=== PATIENT | male | born 1985 | race Caucasian/White ===

== ENCOUNTER 2025-04-09 08:13 | Observation (INO) ==
--- NOTE | 2025-04-09 08:36 | Emergency Department Note ---
Impression & Plan Lumbar disc herniation, Sciatica, Lower back pain, Failure of outpatient treatment ED Provider Note NAME: KEN FABIAN AGE: 39 SEX: M : 1985 ARRIVES VIA: Walk-In INFORMANT: [Patient][signif other] ED PROVIDER(S): [Luis Alfredo Park MD] CHIEF COMPLAINT: Back pain HISTORY OF PRESENT ILLNESS: The patient is a 39-year-old male who states he has a history of some back issues. He has seen [facility] pain management in the past. His last steroid injection in the back was in September of this year. He has never had lumbar surgery. The patient states that in the last week, he has had increasing lower back pain and pain radiating down his left leg. His left leg feels heavy and weak. This is his third visit to this ER in just a few days. The patient is currently using ibuprofen and prednisone, he did take doses this morning. He is not using any narcotic. The patient states that this discomfort today is worse than the original discomfort when he first injured his back. There has been no fever. He has not had cough cold or congestion. He is able to urinate without difficulty. No issues with bowel movements. He denies any recent trauma that would have aggravated or injured the back. PMHx/PSHx/Social Hx: See Below PHYSICAL EXAM: GENERAL: Patient is in no acute distress. HEENT: No acute trauma, normocephalic atraumatic, mucous membranes moist, no nasal congestion. ABDOMEN: Soft, nontender, no peritonitis. EXTREMITIES: No cyanosis, full range of motion of all the joints without pain or difficulty. NEUROLOGIC: Oriented x 3. The patient has decreased strength when testing dorsiflexion of the left toe as compared to the right. There is a slightly decreased left Achilles reflex compared to the right. Patient has 2/4 patellar reflexes bilaterally. SKIN: No jaundice, no diaphoresis. DIFFERENTIAL DIAGNOSIS: Lumbar disc disease, herniated disc, sciatica, nerve impingement, foraminal narrowing, spinal stenosis, among others. EMERGENCY DEPARTMENT PROCEDURES: MEDICAL DECISION MAKING: There is no leukocytosis, a very subtle anemia was seen. There was a normal platelet count. No bandemia. Sed rate was normal at 5. No renal failure or significant electrolyte abnormality. Orbit x-rays did not show any metallic debris. On exam, the patient had some diminished reflexes and strength in the left lower extremity when compared to the right. He was not febrile or toxic. Patient received IV Zofran, IV morphine, IV Toradol, IV Decadron and IV Tylenol. He was ordered for IV Dilaudid as needed for additional pain control. Lumbar spine MRI shows a left L5-S1 disc herniation with nerve compression. I discussed the case with the spinal surgical team. The patient is best with admission, pain and symptom control, he can be seen by pain management and spinal surgery tomorrow. No emergent surgical intervention required this afternoon. I spoke with the patient and case management, the on-call hospitalist was consulted. In short, the patient does have a left disc herniation causing his complaints. He has failed outpatient management and is now in need of hospitalization. Prior/Outside records/notes reviewed: Previous ED visit note describing his presentation, findings and outpatient plan. Imaging/x-ray results per my interpretation: Orbit x-ray does not show any metallic debris. Chronic Medical/Social conditions affecting care: History of her previous back injury requiring steroid injections. Care/Management discussed with: Case management, the on-call hospitalist. Spinal surgery-Dr Vee. Level of care consideration(s): After review of the information above and other included data: --I believe the patient requires escalation of care to admission DISPOSITION: Admission Past Med/Surg History Problem List Failure of outpatient treatment (Acute) Lower back pain (Acute) Lumbar disc herniation (Acute) Lumbar radiculopathy (Acute) Back pain (Acute) Unwanted fertility Medical History Sciatica Social History Smoking Status: Light tobacco smoker Tobacco Type: Smokeless Tobacco (Dip or Chew) Do You Dip or Chew Tobacco: Yes (one can every day and a half); Hx Alcohol Use: Yes Hx Substance Use: No Preferred Language: Georgian Machine Stapler Required: No Beliefs That Will Affect Care: None Current Living Situation: Family Current Living Situation Comment: 2 sons and 5 dogs Other Information That Helps Us Care for You: No Feels Safe at Home: Yes Safety Concerns: Feels Safe At This Time Assistive Devices: None Allergies Allergies Allergy/AdvReac Type Severity Reaction Status Date / Time No Known Allergies Allergy Verified 10/02/21 10:48 Home Meds Home Medications Medication Instructions Recorded Confirmed cyclobenzaprine 5 mg tablet 5 mg PO TID PRN Pain 04/09/25 04/09/25 ibuprofen 600 mg tablet (IBU) 600 mg PO Q6H PRN Pain 04/09/25 04/09/25 Results & Data (ED) Vital Signs Vital Signs - 24 hr 04/09/25 08:16 04/09/25 08:19 04/09/25 09:55 Temperature 36.3 C L Temperature Source Temporal Artery Scan Pulse Rate 73 Pulse Rate [Right Finger] 71 63 Pulse Rhythm Regular Respiratory Rate 20 22 18 Respiratory Effort / Characteristics Non-Labored Spontaneous Non-Labored Spontaneous Non-Labored Spontaneous Respiratory Depth Normal Normal Normal Respiratory Pattern Regular Regular Blood Pressure 145/104 H Blood Pressure [Right Arm] 112/82 115/84 Blood Pressure Mean 117 Blood Pressure Mean [Right Arm] 92 94 Blood Pressure Position Sitting Blood Pressure Position [Right Arm] Pulse Oximetry 99 96 98 Oxygen Delivery Method Room Air Room Air Room Air Sepsis Recent Fever Within 48 Hours No Sepsis New/Unexplained Change in Mental Status No Sepsis Action Taken by Nursing No Action Required 04/09/25 11:31 04/09/25 13:00 Temperature Temperature Source Pulse Rate Pulse Rate [Right Finger] 75 73 Pulse Rhythm Respiratory Rate 18 18 Respiratory Effort / Characteristics Non-Labored Spontaneous Non-Labored Spontaneous Respiratory Depth Normal Normal Respiratory Pattern Regular Regular Blood Pressure Blood Pressure [Right Arm] 130/88 130/85 Blood Pressure Mean Blood Pressure Mean [Right Arm] 102 100 Blood Pressure Position Blood Pressure Position [Right Arm] Lying Lying Pulse Oximetry 95 95 Oxygen Delivery Method Room Air Room Air Sepsis Recent Fever Within 48 Hours Sepsis New/Unexplained Change in Mental Status Sepsis Action Taken by Longterm Medications Current Medication List: was personally reviewed by me Laboratory Data Attestation: I reviewed the patient's lab results. 04/09/25 08:27 04/09/25 08:27 Lab Results 04/09/25 Range/Units 08:27 WBC 10.12 (4.8-10.8) K/ul RBC 4.64 L (4.70-6.10) M/uL Hgb 13.7 L (14.0-18.0) g/dl Hct 41.1 L (42.0-52.0) % MCV 88.6 (80.0-100.0) fL MCH 29.5 (25.0-34.0) pg MCHC 33.3 (32.0-36.0) g/dL RDW Std Deviation 38.0 (36.4-46.3) fL RDW Coeff of Oren 11.9 (11.5-14.5) % Plt Count 186 (130-400) K/uL MPV 10.0 (9.4-12.4) fL Immature Gran % (Auto) 0.3 % Neut % (Auto) 78.8 % Lymph % (Auto) 12.4 % [place] % (Auto) 7.6 % Eos % (Auto) 0.7 % Baso % (Auto) 0.2 % Neut # (Auto) 7.98 H (1.40-6.50) K/uL Lymph # (Auto) 1.25 (1.20-3.40) K/uL [place] # (Auto) 0.77 H (0.11-0.59) K/uL Eos # (Auto) 0.07 (0.00-0.50) K/uL Baso # (Auto) 0.02 (0.00-0.20) K/uL Immature Gran # (Auto) 0.03 (0.01-0.20) K/uL ESR 5 (0-15) mm/hr Sodium 142 (136-145) mmol/L Potassium 3.8 (3.5-5.1) mmol/L Chloride 108 H (98-107) mmol/L Carbon Dioxide 27 (21-32) mmol/L Anion Gap 7 (3-11) BUN 20 (6-23) mg/dl Creatinine 1.14 (0.6-1.4) mg/dl Est Cr Clr Drug Dosing 102.1 ml/min eGFR 84.42 BUN/Creatinine Ratio 17.5 (10-20) Glucose 119 H (70-99(Fasting)) mg/dl Calcium 9.3 (8.6-10.3) mg/dl Administered Medications Hydromorphone HCl (Hydromorphone Inj 0.5 Mg/0.5 Ml Syr) 0.5 mg IV Q15M PRN PRN Reason: Pain Stop: 04/23/25 09:27 Last Admin: 04/09/25 09:57 Dose: 0.5 mg Documented By: ROSELINE Discontinued Medications Dexamethasone Sodium Phosphate (DexamethasonePf 10 Mg/Ml Vial) 6 mg IV NOW ONE Stop: 04/09/25 08:22 Last Admin: 04/09/25 08:45 Dose: 6 mg Documented By: na Acetaminophen (Ofirmev) 1,000 mg in 100 mls @ 400 mls/hr IV NOW STA Stop: 04/09/25 08:45 Last Infusion: 04/09/25 09:24 Dose: Infused Documented By: na Admin: 04/09/25 08:46 Dose: 400 mls/hr Documented By: na Ketorolac Tromethamine (Ketorolac Tromethamine 15 Mg/Ml Vial) 10 mg IV NOW ONE Stop: 04/09/25 08:22 Last Admin: 04/09/25 08:46 Dose: 10 mg Documented By: na Morphine Sulfate (Morphine Sulfate 10 Mg/Ml Carp/Vial) 6 mg IV NOW STA Stop: 04/09/25 08:22 Last Admin: 04/09/25 08:45 Dose: 6 mg Documented By: na Ondansetron HCl (Ondansetron Inj 2 Mg/Ml 2 Ml Vial) 4 mg IV NOW STA Stop: 04/09/25 08:22 Last Admin: 04/09/25 08:46 Dose: 4 mg Documented By: na Imaging Data Radiologist's Impression: Lumbar Spine MRI 04/09/25 08:31 MR lumbar spine wo con CLINICAL HISTORY: left leg pain and weakness. COMPARISON: None TECHNIQUE: Multiplanar, multi sequence MRI of the lumbar spine was performed without intravenous contrast. FINDINGS: Conus medullaris terminates normally at L1. No lumbar spine fracture or subluxation seen. L1-2: No significant disc bulge or central canal or neural foraminal narrowing. L2-3: There is a minimal disc bulge. No significant central canal or neuroforaminal narrowing. L3-4: No significant disc bulge. No central canal or neuroforaminal narrowing. L4-5: There is a mild broad-based disc bulge with minimal ligamentum flavum and facet hypertrophy. No significant central canal narrowing. There is mild right neural foraminal narrowing. No significant neural foraminal narrowing on the left. L5-S1: There is a mild broad-based disc bulge with a superimposed left paracentral disc extrusion or free disc fragment measuring 8 mm extending below the disc, best seen on axial series 5 image 25 and sagittal series 2 image 9. This causes mass effect on the exiting left nerve root at the left lateral recess. There is mild bilateral neuroforaminal narrowing. IMPRESSION: 1. No lumbar spine fracture seen. 2. Left paracentral disc extrusion or free disc fragment at L5-S1 causes mass effect on the exiting left nerve root. ACT 112: Negative or not required by law. The above report was generated using voice recognition software. It may contain grammatical, syntax or spelling errors. Electronically signed by: Aly Sandy M.D. 04/09/2025 10:29 AM Orbit X-Ray 04/09/25 09:11 XR orbits for MRI CLINICAL HISTORY: Screening for foreign body for MRI COMPARISON STUDY: None FINDINGS: No metallic foreign body seen at the orbits. IMPRESSION: No metallic foreign body seen at the orbits. ACT 112: Negative or not required by law. Electronically signed by: Aly Sandy M.D. 04/09/2025 9:35 AM Discharge Plan Visit Data Chief Complaint: Back Injury/Pain Stated Complaint: BACK PAIN ED Provider: Luis Alfredo Park Discharge Problem: Lumbar disc herniation, Sciatica, Lower back pain, Failure of outpatient treatment Patient Disposition: Admitted As Inpatient Condition: Fair Discharge Instructions Interventions: ED Discharge Assessment Last Done: 04/09/25 15:28 Discharge Problem: Sciatica Qualifiers: Laterality: left Qualified Code(s): M54.32 - Sciatica, left side Lower back pain Qualifiers: Chronicity: acute Back pain laterality: left Sciatica presence: with sciatica S ciatica laterality: sciatica of left side Qualified Code(s): M54.42 - Lumbago with sciatica, left side
[2025-04-09] MEDS: dexAMETHasone**PF** 10 MG/ML VIAL IV ONE (08:45)
[2025-04-09] MEDS: MoRPHine SULFATE 10 MG/ML CARP/VIAL IV STA (08:45)
[2025-04-09] MEDS: KETOROLAC TROMETHAMINE 15 MG/ML VIAL IV ONE (08:46)
[2025-04-09] MEDS: ONDANSETRON INJ 2 MG/ML 2 ML VIAL IV STA (08:46)
[2025-04-09] MEDS: ACETAMINOPHEN 1,000 MG/100 ML VIAL IV STA (08:46)
[2025-04-09 08:50] LABS: Hematocrit (blood only) 41.1 % (42.0-52.0); Hemoglobin 13.7 g/dl (14.0-18.0); Immature Granulocytes # (auto) 0.03 K/uL (0.01-0.20); Immature Granulocytes % (auto) 0.3 %; Mean Corpuscular Hemoglobin 29.5 pg (25.0-34.0); Mean Corpuscular Volume 88.6 fL (80.0-100.0); Platelet Count 186 K/uL (130-400); RDW Standard Deviation 38.0 fL (36.4-46.3); Red Blood Count 4.64 M/uL (4.70-6.10); White Blood Count 10.12 K/ul (4.8-10.8)
[2025-04-09 09:11] LABS: Anion Gap 7.0 (3-11); Blood Urea Nitrogen 20.0 mg/dl (6-23); Calcium 9.3 mg/dl (8.6-10.3); Carbon Dioxide 27.0 mmol/L (21-32); Chloride 108.0 mmol/L (98-107); Creatinine Clr Calc Pharmacy 102.1 ml/min; Glucose 119.0 mg/dl (70-99(Fasting)); Potassium 3.8 mmol/L (3.5-5.1); Sodium 142.0 mmol/L (136-145)
--- NOTE | 2025-04-09 09:36 | XRay Report ---
XR orbits for MRI CLINICAL HISTORY: Screening for foreign body for MRI COMPARISON STUDY: None FINDINGS: No metallic foreign body seen at the orbits. IMPRESSION: No metallic foreign body seen at the orbits. ACT 112: Negative or not required by law. Electronically signed by: Aly Sandy M.D. 04/09/2025 9:35 AM
[2025-04-09] MEDS: HYDROmorphone INJ 0.5 MG/0.5 ML SYR IV PRN (09:57)
--- NOTE | 2025-04-09 10:31 | Magnetic Resonance Report ---
MR lumbar spine wo con CLINICAL HISTORY: left leg pain and weakness. COMPARISON: None TECHNIQUE: Multiplanar, multi sequence MRI of the lumbar spine was performed without intravenous cont rast. FINDINGS: Conus medullaris terminates normally at L1. No lumbar spine fracture or subluxation seen. L1-2: No significant disc bulge or central canal or neural foraminal narrowing. L2-3: There is a minimal disc bulge. No significant central canal or neuroforaminal narrowing. L3-4: No significant disc bulge. No central canal or neuroforaminal narrowing. L4-5: There is a mild broad-based disc bulge with minimal ligamentum flavum and facet hypertrophy. No significant central canal narrowing. There is mild right neural foraminal narrowing. No significant neural foraminal narrowing on the left. L5-S1: There is a mild broad-based disc bulge with a superimposed left paracentral disc extrusion or free disc fragment measuring 8 mm extending below the disc, best seen on axial series 5 image 25 and sagittal series 2 image 9. This causes mass effect on the exiting left nerve root at the left lateral recess. There is mild bilateral neuroforaminal narrowing. IMPRESSION: 1. No lumbar spine fracture seen. 2. Left paracentral disc extrusion or free disc fragment at L5-S1 causes mass effect on the exiting l eft nerve root. ACT 112: Negative or not required by law. The above report was generated using voice recognition software. It may contain grammatical, syntax o r spelling errors. Electronically signed by: Aly Sandy M.D. 04/09/2025 10:29 AM
[2025-04-09] MEDS ORDERED: MELATONIN 3 MG TAB PO PRN (16:00)
[2025-04-09] MEDS ORDERED: ACETAMINOPHEN 325 MG TAB PO PRN (16:00)
[2025-04-09] MEDS ORDERED: ONDANSETRON INJ 2 MG/ML 2 ML VIAL IV PRN (16:00)
[2025-04-09] MEDS ORDERED: ALUMINUM/MAGNESIUM SUSP 30 ML UDC PO PRN (16:00)
[2025-04-09] MEDS ORDERED: MoRPHine SULFATE 2 MG/ML CARP IV PRN (16:00)
--- NOTE | 2025-04-09 16:47 | History & Physical Report ---
Date of Service April 09, 2025 Assessment & Plan (1) Failure of outpatient treatment: (2) Lower back pain: (3) Lumbar disc herniation: (4) Lumbar radiculopathy: (5) Back pain: (6) Unwanted fertility: Plan 39 yrs old male presents to the ED with complaints of back pain. He is admitted for pain management and spine surgery consult for tomorrow. #Disc Herniation with sciatica: -Reports back pain with sciatica down to left leg.MRI shows Left paracentral disc extrusion or free disc fragment at L5-S1 causes mass effect on the exiting left nerve root.No fractures. Differential diagnoses includes lumbago versus musculoskeletal spasm / strain versus sciatica. No fractures. -WBC and electrolytes WNL. - Was given Dexamethasone and analgesics on ED. - Pain management with tylenol for mild pain and 2mg IV Morphine and 4mg IV Morphine as needed. Zofran for nausea.Avoiding NSAIDS for pain. - Spine surgery consult for possible surgical intervention or pain management tomorrow. -NPo overnight for possible surgical intervention tomorrow. #VTE Prophylaxis: Heparin SC -Admit-Med/Surg Admission and Anticipated Discharge Date Admission Date: April 09, 2025 History of Present Illness Chief Complaint: 39 yrs old male presents to the ED with complaints of back pain which is excruciating stabbing like, 10/10 on severity, radiating down to his left leg upto his feet a/w tingling and slight weakness on his left leg, Pain relieves when he is sleeping and walking but exacerbates when he sits. Pain is a/w bladder pressure which urges him to pass urine but he has no incontinence. Pain is severe to the point that his had to help him put the shoe on while coming to the ED. Pain has been worsening since 3 days, he came to the ed 3 days ago and was discharged with pain medications but yesterday night he woke up from his sleep with the excruciating pain. It all started since 2022 when he herniated his disc after lifting heavy weight since then its been the same which required him to get steroid injection frequently but his insurance stopped from getting one since September saying that the Mri is too old. He never had time to go to physical therapy. No H/o numbness, saddle anesthesia, bowel and bladder dysfunction, fever, weight loss, any recent infection. Primary Care Provider: NO PCP Allergies Allergy/AdvReac Type Severity Reaction Status Date / Time No Known Allergies Allergy Verified 10/02/21 10:48 Home Medications Medication Instructions Recorded Confirmed Type cyclobenzaprine 5 mg tablet 5 mg PO TID PRN Pain 04/09/25 04/09/25 History ibuprofen 600 mg tablet (IBU) 600 mg PO Q6H PRN Pain 04/09/25 04/09/25 History Past Med/Surg History Problem List (Updated 04/09/25 @ 17:56 by Luis Alfredo Vee MD) Lumbar stenosis without neurogenic claudication Radicular pain of lumbosacral region Lumbosacral disc herniation Failure of outpatient treatment (Acute) Lower back pain (Acute) Lumbar disc herniation (Acute) Lumbar radiculopathy (Acute) Back pain (Acute) Unwanted fertility Medical History Sciatica Social History Smoking Status: Light tobacco smoker Tobacco Type: Smokeless Tobacco (Dip or Chew) Do You Dip or Chew Tobacco: Yes (one can every day and a half); Hx Alcohol Use: Yes Hx Substance Use: No Preferred Language: Divehi Telesales Professional Required: No Beliefs That Will Affect Care: None Current Living Situation: Family Current Living Situation Comment: 2 sons and 5 dogs Other Information That Helps Us Care for You: No Feels Safe at Home: Yes Safety Concerns: Feels Safe At This Time Assistive Devices: None Review of Systems Review of Systems: As per HPI. Physical Exam Constitutional: well developed and well nourished; no acute distress Eyes: + anicteric sclerae; pupils not irregula r Respiratory: normal respiratory effort; no respiratory distress, does not use accessory muscles and no cough Cardiovascular: well perfused Gastrointestinal (Abdomen): Inspection/Auscultation: abdomen normal to inspection; abdomen not distended Musculoskeletal: Extremities: extremities normal to inspection Paraspinal tenderness on L4-L5 region. SLRT positive. Skin: normal turgor; no rashes and no lesions Neurologic: awake Sensory function intact in extremities.Muscle strength normal. Psychiatric: Orientation: alert and oriented x 3 Results & Data Results & Data Vital Signs (Past 12 Hours) Vital Signs Temp Pulse Pulse Resp BP BP Pulse Ox 04/09/25 16:25 36.5 C 58 L 18 128/83 97 04/09/25 15:24 83 18 99 04/09/25 13:00 73 18 130/85 95 04/09/25 11:31 75 18 130/88 95 04/09/25 09:55 63 18 115/84 98 04/09/25 08:19 71 22 112/82 96 04/09/25 08:16 36.3 C L 73 20 145/104 H 99 O2 Del Method 04/09/25 16:25 Room Air 04/09/25 15:24 04/09/25 13:00 Room Air 04/09/25 11:31 Room Air 04/09/25 09:55 Room Air 04/09/25 08:19 Room Air 04/09/25 08:16 Room Air Code Status & VTE Plan VTE Prophylaxis Plan VTE Prophylaxis will be ordered: Yes Resident Activity Tracking Resident Involvement: Resident Care Provided Care Provided: Adult Hospital Medicine Resident Supervision Co-Signing Physician Notes Attending attestation Pt seen and examined in concert with Dr. Gomez. In agreement with the documented findings as noted in the resident documentation with any exceptions or additions as noted here. Resting comfortably in bed at time of examination, no pain except with sitting/position changes which radiates down posterior left leg to the toes, similar to previous right sided symptoms well controlled with steroid injections through pain mgmt. Minimal relief with steroid use, NSAIDs, muscle relaxants. Reports mild paresthesias without significant weakness. VS as noted. On examination, S1/S2 nl RRR no MCG. CTAB. Abd NT/ND BS+ve Intractable left back pain with sciatic radiation - ortho spine consult - admit to med-surg - pain control as noted. Will eschew further steroid therapy at present and mitigate pain control with close monitoring. DVT PPX following any intervention tomorrow. NPO past MN. Else see resident documentation as noted. (2) Lower back pain Back pain laterality: left Chronicity: acute Sciatica laterality: sciatica of left side Sciatica presence: with sciatica Qualified Code(s): M54.42 - Lumbago with sciatica, left side (5) Back pain Back pain laterality: left Back pain location: low back pain Chronicity: acute Sciatica laterality: sciatica of left side Sciatica presence: with sciatica Qualified Code(s): M54.42 - Lumbago with sciatica, left side
[2025-04-09] MEDS: HEPARIN SOD 5,000 UNIT/0.5 ML VIAL SQ STA (17:01)
[2025-04-09] MEDS: MoRPHine SULFATE 4 MG/ML 1 ML CARP\\VIAL IV PRN (17:13)
--- NOTE | 2025-04-09 18:00 | Orthopedic Consultation ---
Date of Service April 09, 2025 Assessment & Plan (1) Lumbosacral disc herniation: (2) Radicular pain of lumbosacral region: (3) Lumbar stenosis without neurogenic claudication: Plan Patient admitted for pain control from L5-S1 disc herniation, he has failed several attempts at discharge for outpatient treatment. Recommend IV steroids for 24-48 hours, PT, muscle relaxer, lyrica. Will also consult pain management as he would like to transition here for care and we can see if there is any chance of an epidural here as he has not been able to discharge safely. He would like to avoid surgery which is reasonable unless he develops progressive deficits. Will follow. History of Present Illness Reason for Consultation: Left S1 Radiculopathy Requesting Physician: . Attending Physician: Markel Spring MD Patient is a 39 year old male admitted after several ER visits for left lower extremity pain. Pain has been present in LLE for several weeks, he has a hx of RLE radicular pain and has had epidural injections where he had resolution of RLE pain. He presented to the ER for his 3rd visit today, continued pain and numbness to LLE in S1 dermatomal pattern, subjective weaknes, paresthesias. No bowel or bladder dysfunction. He has trialed NSAIDs and oral steroids. No lyrica or gabapentin. Allergies Allergy/AdvReac Type Severity Reaction Status Date / Time No Known Allergies Allergy Verified 10/02/21 10:48 Home Medications Medication Instructions Recorded Confirmed Type cyclobenzaprine 5 mg tablet 5 mg PO TID PRN Pain 04/09/25 04/09/25 History ibuprofen 600 mg tablet (IBU) 600 mg PO Q6H PRN Pain 04/09/25 04/09/25 History Past Med/Surg History Problem List (Updated 04/09/25 @ 17:56 by Luis Alfredo Vee MD) Lumbar stenosis without neurogenic claudication Radicular pain of lumbosacral region Lumbosacral disc herniation Failure of outpatient treatment (Acute) Lower back pain (Acute) Lumbar disc herniation (Acute) Lumbar radiculopathy (Acute) Back pain (Acute) Unwanted fertility Medical History Sciatica Social History Smoking Status: Light tobacco smoker Tobacco Type: Smokeless Tobacco (Dip or Chew) Do You Dip or Chew Tobacco: Yes (one can every day and a half); Hx Alcohol Use: Yes Hx Substance Use: No Preferred Language: French Pocket Machine Operator Required: No Beliefs That Will Affect Care: None Current Living Situation: Family Current Living Situation Comment: 2 sons and 5 dogs Other Information That Helps Us Care for You: No Feels Safe at Home: Yes Safety Concerns: Feels Safe At This Time Assistive Devices: None Review of Systems All systems reviewed & are unremarkable except as noted in HPI & below. Physical Exam Midline lumbar tenderness 5/5 strength bilateral hip flexor quads Tib Ant EHL and GS with exception of 4/5 left Tib ant and GS Absent right Achiles reflex SILT L2-S1 bilateral, paresthesias left S1 Results & Data Results & Data Laboratory Results . Diagnostic Findings MRI lumbar spine interpreted personally. There is no significant degeneration or stenosis L1-L5. At L5-S1 there is a 7-8 mm disc herniation with compression of the traversing S1 nerve on the left. No severe canal stenosis. PG Care Time/CCT Total # of Minutes Spent Total Time Spent with Patient: Total time spent is greater than 50% in coordination of care (as documented) at patient's floor/unit and/or counseling patient: Coding Level of Care Code 16114 IN/OBS CONSULT LVL 3,45M Diagnoses Lumbosacral disc herniation M51.27 Radicular pain of lumbosacral region M54.17 Lumbar stenosis without neurogenic claudication M48.061
[2025-04-09] MEDS ORDERED: HYDROCODONE/ACETAMINOPHEN 7.5/325MG TAB PO PRN (18:03)
[2025-04-09] MEDS: PREGABALIN 75 MG CAP PO SCH (18:09)
[2025-04-09] MEDS: dexAMETHasone 10 MG in SYRINGE 0 ML IV SCH (21:17)
[2025-04-10 06:37] LABS: Hematocrit (blood only) 38.2 % (42.0-52.0); Hemoglobin 13.4 g/dl (14.0-18.0); Mean Corpuscular Hemoglobin 30.9 pg (25.0-34.0); Mean Corpuscular Volume 88.2 fL (80.0-100.0); Platelet Count 200 K/uL (130-400); RDW Standard Deviation 38.2 fL (36.4-46.3); Red Blood Count 4.33 M/uL (4.70-6.10); White Blood Count 13.19 K/ul (4.8-10.8)
[2025-04-10 07:02] LABS: Anion Gap 6.0 (3-11); Blood Urea Nitrogen 19.0 mg/dl (6-23); Calcium 9.0 mg/dl (8.6-10.3); Carbon Dioxide 27.0 mmol/L (21-32); Chloride 106.0 mmol/L (98-107); Creatinine Clr Calc Pharmacy 112.0 ml/min; Potassium 4.2 mmol/L (3.5-5.1); Sodium 139.0 mmol/L (136-145)
[2025-04-10 07:11] LABS: Immature Granulocytes # (auto) 0.06 K/uL (0.01-0.20); Immature Granulocytes % (auto) 0.5 %
[2025-04-10 07:16] VITALS: BP 124/77; PULSE 64; RESP 18; TEMP 97.9; O2SAT 97
--- NOTE | 2025-04-10 07:50 | Pain Management Consultation ---
Date of Consultation April 10, 2025 Assessment & Plan (1) Lumbar disc herniation: (2) Lumbar radiculopathy: Plan 1. We discussed his symptomatic presentation and reviewed imaging studies. Treatment options were reviewed. We discussed pursuing a left L5-S1 and S1 transforaminal SAMY. Side effects risk benefits were discussed. All his questions were answered. Patient does wish to proceed with the procedure. Patient will remain NPO. 2. Remain on pregabalin 75 mg twice daily 3. Patient will be discharged to pain clinic for SAMY later today. Case was discussed with Dr. Aburto. History of Present Illness Reason for Consultation: Intractable left lower extremity radicular pain Requesting Physician: Luis Alfredo Vee MD Attending Physician: Santos Aburto DO History of Present Illness Mr. Moe is a 39 year old white male who was admitted yesterday 04/09/25 with compliant of intractable left lower extremity S1 radicular pattern pain. Patient reported onset of pain, which was mild, approximately 3-4 weeks ago without known injury with some mild discomfort in the gluteal and posterior thigh. Then, approximately 3-4 days ago his pain began to be severe with sharp, shooting and burning characteristic pain starting in the gluteal area traveling in an S1 distribution to the foot. Patient reports this pain has been fairly persistent over the past 3 to 4 days and intractable. He has significant increase in pain with sitting and standing and walking activities. He is most comfortable while lying supine indicating his pain is mild. Patient was emergently evaluated on 2 separate occasions and subsequently admitted due to his pain. MRI was completed which revealed a large left paracentral disc extrusion or free disc fragment at L5 and S1 causing mass effect on the exiting left nerve root. Patient reports some numbness and tingling sensation which is not constant. He denies any overt weakness although due to the severity of the pain he has some difficulty with extended ambulation. He denies any bowel or bladder incontinence. He denies saddle anesthesia. Denies any right lower extremity radicular pain. He was evaluated by orthospine surgery who deferred surgical intervention in lieu of consideration of lumbar SAMY. Patient is currently NPO. Plan of care discussed with Dr. Yamilka Haney. Pain Assessment Full Body Front + Back: 2 1. Left S1 radicular pain Pain scale - at its best (0-10): 4 Pain scale - at its worst (0-10): 9 Allergies Allergy/AdvReac Type Severity Reaction Status Date / Time No Known Allergies Allergy Verified 10/02/21 10:48 Home Medications Medication Instructions Recorded Confirmed Type cyclobenzaprine 5 mg tablet 5 mg PO TID PRN Pain 04/09/25 04/09/25 History ibuprofen 600 mg tablet (IBU) 600 mg PO Q6H PRN Pain 04/09/25 04/09/25 History Pain History Pain Intensity Pain scale - at its best (0-10): 4 Pain scale - at its worst (0-10): 9 Patient History Medical History Sciatica Social History Smoking Status: Light tobacco smoker Tobacco Type: Smokeless Tobacco (Dip or Chew) Do You Dip or Chew Tobacco: Yes (one can every day and a half); Hx Alcohol Use: Yes Hx Substance Use: No Preferred Language: Dominican Draw Tender Required: No Beliefs That Will Affect Care: None Current Living Situation: Family Current Living Situation Comment: 2 sons and 5 dogs Other Information That Helps Us Care for You: No Feels Safe at Home: Yes Safety Concerns: Feels Safe At This Time Assistive Devices: None Physical Exam 2 Physical Exam: General: Patient lying quietly in exam room in no acute distress. Speech and thought process appropriate. Mood and affect appropriate. Cognition intact. Head: Normocephalic and atraumatic. ENT: No evidence of nasal or oral mucosal lesions. Mucous membranes are moist. Eyes: Pupils equal round reactive to light. Neck: Supple without adenopathy and full range of motion. Abdomen: Soft and nondistended. No organomegaly. Bowel sounds active. Back/spine: Loss of lumbar lordosis. Nontender over the midline. No focal facet or SI joint tenderness. Nontender in the lumbar paravertebral or quadratus lumborum musculature. Minimally tender throughout the left gluteal region. Lower extremities: Strength testing 4/5 with left EHL and 5/5 on the right. Dorsiflexion plantarflexion 4+/5 in the left and 5/5 on the right. All other strength appear to be 5/5 and equal bilaterally. SLR was positive on the left at approximately 10-15 degrees aggravated dorsiflexion reproducing S1 radicular pain. SLR negative on the right. Sensation is intact distally to sharp and dull. Neurologic: Cranial nerves grossly intact. Ambulatory function not witnessed. Results (Pain Clinic) Diagnostic Review MRI Findings: [place], [place] [phone] Magnetic Resonance Report Patient: KEN MOE Admit Date: 04/09/25 MR#: [id number] Address[address]: [address] Acct ID:[id number] Address2: Date: 1985 [facility] Zip: [place] [address] Age: 39 Location: ED Sex: M Room/Bed: Att Phy: Diagnosis: BACK PAIN Yaima Phy: PCP,NO Service Date: 04/09/25 Fam Phy: Interpreting Phy: Aly Sandy MDAdmit Phy: Ordering Phy: Luis Alfredo Park M.D. cc: ~ MR lumbar spine wo con CLINICAL HISTORY: left leg pain and weakness. COMPARISON: None TECHNIQUE: Multiplanar, multi sequence MRI of the lumbar spine was performed without intravenous contrast. FINDINGS: Conus medullaris terminates normally at L1. No lumbar spine fracture or subluxation seen. L1-2: No significant disc bulge or central canal or neural foraminal narrowing. L2-3: There is a minimal disc bulge. No significant central canal or neuroforaminal narrowing. L3-4: No significant disc bulge. No central canal or neuroforaminal narrowing. L4-5: There is a mild broad-based disc bulge with minimal ligamentum flavum and facet hypertrophy. No significant central canal narrowing. There is mild right neural foraminal narrowing. No significant neural foraminal narrowing on the left. L5-S1: There is a mild broad-based disc bulge with a superimposed left paracentral disc extrusion or free disc fragment measuring 8 mm extending below the disc, best seen on axial series 5 image 25 and sagittal series 2 image 9. This causes mass effect on the exiting left nerve root at the left lateral recess. There is mild bilateral neuroforaminal narrowing. IMPRESSION: 1. No lumbar spine fracture seen. 2. Left paracentral disc extrusion or free disc fragment at L5-S1 causes mass effect on the exiting left nerve root. ACT 112: Negative or not required by law. The above report was generated using voice recognition software. It may contain grammatical, syntax or spelling errors. Electronically signed by: Aly Sandy M.D. 04/09/2025 10:29 AM Dictated: 04/09/25 1021 Transcribed: 04/09/25 1021
--- NOTE | 2025-04-10 09:52 | Orthopedic Progress Note ---
Date of Service April 10, 2025 Assessment & Plan (1) Lumbar stenosis without neurogenic claudication: (2) Radicular pain of lumbosacral region: (3) Lumbosacral disc herniation: (4) Failure of outpatient treatment: (5) Lumbar disc herniation: Plan Patient is a 39-year-old male with L5-S1 disc herniation causing significant lumbar radicular pain. Overall he is grossly neurologically intact however unable to discharge safely due to the level of pain. They are evaluating him f or possible epidural injection at [facility] pain clinic, if they are able to arrange outpatient epidural he will discharge for follow-up in the pain management clinic for injection. We again discussed the possibility of an L5-S1 discectomy for removal of the herniated disc fragment however patient reports he has had excellent results with epidural injections in the past and would prefer trialing this rather than surgery at this time. Is a very reasonable course of action, okay for discharge to follow-up for epidural injection. If he is unable to discharge home safely could consider surgery later in the week for removal of the disc fragment. Subjective Patient is a 39-year-old gentleman with an L5-S1 disc herniation on the left. He was started on IV steroids, Lyrica and muscle relaxers last night. Reports that he has continued pain into the left gluteal region and down the left leg. Able to stand however for short periods of time and requiring narcotic pain medication. He has been evaluated by pain management this morning, they will attempt to see if they can work him in for an epidural injection at the office. Does not have any advancing neurologic deficit, he prefers to trial an epidural injection rather than proceed with surgery which would agree is very reasonable at this time. Review of Systems All systems reviewed & are unremarkable except as noted in HPI & below. Physical Exam 5 out of 5 strength bilateral L2-S1 myotomes with the exception of 4 out of 5 strength with left tib ant and gastrocsoleus Sensation intact to light touch L2-S1 with paresthesias in the left S1 distribution. Results & Data Results & Data Laboratory Results . Diagnostic Findings . PG Care Time/CCT Total # of Minutes Spent Total Time Spent with Patient: Total time spent is greater than 50% in coordination of care (as documented) at patient's floor/unit and/or counseling patient: Coding Level of Care Code 29432 SUB INP/OBS CARE 2/35MIN Diagnoses Lumbar stenosis without neurogenic claudication M48.061 Radicular pain of lumbosacral region M54.17 Lumbosacral disc herniation M51.27 Failure of outpatient treatment Z78.9 Lumbar disc herniation M51.26
[2025-04-10] MEDS: ACETAMINOPHEN 325 MG TAB PO SCH (09:58)
--- NOTE | 2025-04-10 11:34 | Discharge Summary ---
Date of Service April 10, 2025 Admission HPI Per Admitting Provider 39 yrs old male presents to the ED with complaints of back pain which is excruciating stabbing like, 10/10 on severity, radiating down to his left leg upto his feet a/w tingling and slight weakness on his left leg, Pain relieves when he is sleeping and walking but exacerbates when he sits. Pain is a/w bladder pressure which urges him to pass urine but he has no incontinence. Pain is severe to the point that his had to help him put the shoe on while coming to the ED. Pain has been worsening since 3 days, he came to the ed 3 days ago and was discharged with pain medications but yesterday night he woke up from his sleep with the excruciating pain. It all started since 2022 when he herniated his disc after lifting heavy weight since then its been the same which required him to get steroid injection frequ ently but his insurance stopped from getting one since September saying that the Mri is too old. He never had time to go to physical therapy. No H/o numbness, saddle anesthesia, bowel and bladder dysfunction, fever, weight loss, any recent infection. Admission Exam Per Admitting Provider Constitutional: well developed and well nourished; no acute distress Eyes: + anicteric sclerae; pupils not irregula r Respiratory: normal respiratory effort; no respiratory distress, does not use accessory muscles and no cough Cardiovascular: well perfused Gastrointestinal (Abdomen): Inspection/Auscultation: abdomen normal to inspection; abdomen not distended Musculoskeletal: Extremities: extremities normal to inspection Paraspinal tenderness on L4-L5 region. SLRT positive. Skin: normal turgor; no rashes and no lesions Neurologic: awake Sensory function intact in extremities.Muscle strength normal. Psychiatric: Orientation: alert and oriented x 3 Principal Diagnosis Disc herniation with sciatica Discharge Exam Constitutional well developed and well nourished; no acute distress Eyes + anicteric sclerae; pupils not irregular Respiratory normal respiratory effort; no respiratory distress, does not use accessory muscles and no cough Gastrointestinal (Abdomen) Inspection/Auscultation: abdomen normal to inspection; abdomen not distended Musculoskeletal Extremities: extremities normal to inspection Skin normal turgor; no rashes and no lesions Neurologic awake Psychiatric Orientation: alert and oriented x 3 Discharge Data Allergies Allergy/AdvReac Type Severity Reaction Status Date / Time No Known Allergies Allergy Verified 04/10/25 14:24 Consultations 04/09/25 12:31 ED Decision to Admit Stat 04/09/25 18:04 Consult Orthopedic Spine Surgery Routine 04/09/25 18:05 Consult Pain Management Routine Ordered Studies 04/09/25 08:31 MR lumbar spine wo con Stat Hospital Course (1) Failure of outpatient treatment: (2) Lower back pain: (3) Lumbar disc herniation: (4) Lumbar radiculopathy: (5) Back pain: (6) Unwanted fertility: Plan 39 yrs old male presents to the ED with complaints of back pain. He is admitted for pain management and spine surgery consult for tomorrow. #Disc Herniation with sciatica: -Reports back pain with sciatica down to left leg.MRI shows Left paracentral disc extrusion or free disc fragment at L5-S1 causes mass effect on the exiting left nerve root.No fractures. Differential diagnoses includes lumbago versus musculoskeletal spasm / strain versus sciatica. No fractures. -WBC and electrolytes WNL. - Was given Dexamethasone and analgesics on ED. - Pain management with tylenol for mild pain and 2mg IV Morphine and 4mg IV Morphine as needed. Zofran for nausea.Avoiding NSAIDS for pain. - Spine surgery consult for possible surgical intervention or pain management tomorrow. - Pain management appointment today afternoon for epidural injection.' #VTE Prophylaxis: Heparin SC -Admit-Med/Surg Total Time Total Time Spent Total Time Spent (In Minutes): <30 Discharge Plan Discharge Items Patient Disposition: Home - Home Health Services Reason For Visit: BACK PAIN Discharge Diagnosis: lumbar disc herniation Condition on Discharge: Fair Activity: Resume your previous activity Non-emergency contact: Primary Care Provider and Specialist Call non-emergency contact if: you have any medication questions and your symptoms worsen Follow-up/Referrals: Mateo Argueta DO [Physician] - 04/14/25 11:20 am (Hospital follow up appointment ) PCP,NO [Primary Care Provider] - () Diet: Regular Addtl Attending Provider Instructions: head straight to the pain management office on [address] for epidural steroid injection Pending Studies at Discharge: No Stand-Alone Forms: [employer], Smoking Cessation Medications and DC Order Prescriptions: New pregabalin [Lyrica] 75 mg capsule 75 mg PO BID Qty: 60 0RF dexamethasone 6 mg tablet 6 mg PO DAILY Qty: 5 0RF oxycodone 5 mg tablet 5 mg PO Q6H PRN (Reason: pain (scale score 7-10)) Qty: 14 0RF Continued ibuprofen [IBU] 600 mg tablet 600 mg PO Q6H PRN (Reason: Pain) cyclobenzaprine 5 mg tablet 5 mg PO TID PRN (Reason: Pain) Discharge Orders: Discharge Order (Routine); Ordered 04/10/25 Ordered By: Santos Toney/Other Patient Handouts: Dexamethasone Oral Tablet, Oxycodone Oral Tablet, Pregabalin Oral Capsule Admission Data Admit Date/Time: 04/09/25 14:43 Attending Provider: Santos Aburto Admit Provider: Elizabeth Gomez Primary Care Provider: PCP,NO Other Providers: Curt Becker; Santos Urbano; Mohinder Soria; Sue Villalobos; Lisbeth Ruiz; Nixon Brambila.; Luis Alfredo Vee; Marino Moise; Nixon Villalobos; Yamilka Haney Other Interventions: Discharge Summary Assessment (RN) Last Done: 04/10/25 12:09 Supervising Physician Co-Signing Physician Notes I personally examined the patient and verified all hayes points of history and exam, discussed case, and agree with decision making with Dr Gomez doing better, feeling better. still a lot of pain with walking, but has been t hrough this before with prior disc disease. feels safe for dc - for pain management appt immediately after dc for SMAY d/w pain team - input greatly appreciated vitals ntoed nad heent nc at mmm breathing unlabored no accessory muscles good effort skin no rashes no pallor or icterus neuro no focal deficits intractable pain due to lumbar radiculopathy from disc herniation/possible fragment - doing better. steroids. pain meds. LESI. time. hopefully can avoid surgery. safe for discharge - pain management visit for LESI today. otherwise as above
--- NOTE | 2025-04-10 13:08 | Billing Data ---
Date of Service April 10, 2025 Coding Level of Care Code 95944 IN/OBS DISCH 30 MIN/LESS
== END 2025-04-10 13:34 | disposition home health service (06) | DRG 552 ==
LOC: SUATTDRO → ED 08:13 → INTOOBSV 14:43 → 3N 14:43 → SUATTDRO 14:43 → 3N 15:28